=== PATIENT | female | born 1990 | race African-American/Black ===

== ENCOUNTER 2024-08-13 09:00 | Outpatient (RCR) | payer BC, SELFPAY | END 2024-08-13 19:00 | disposition home or self-care (01) | LOC: PT 09:00 | DX: S46.011D Strain of muscle(s) and tendon(s) of the rotator cuff of right shoulder, subsequent encounter (principal); M25.579 Pain in unspecified ankle and joints of unspecified foot | CPT/HCPCS: 97110; 97161 ==